=== PATIENT | female | born 1945 | race Caucasian/White ===

== ENCOUNTER → 2020-06-27 | Outpatient (CLI) | payer MEDICARE ==
--- NOTE | 2020-07-06 12:28 | RAD ---
DATE: 06/27/2020 11:25 AM EXAM: MG BILAT SCREEN+MIO HISTORY: routine screening evaluation. COMPARISON: 02/17/2019 Bilateral CC and MLO views of the breasts were performed. Bilateral breast tomosynthesis was performe d in CC and MLO projections. This study was interpreted with the benefit of Computerized Aided Detection (CAD). FINDINGS: Breast Density: HETERO The breast parenchyma Is heterogeneously dense, which could reduce sensitivit y of mammography. Breast parenchyma level C Benign calcifications are present. The parenchymal pattern appears stable. No suspicious masses, microcalcifications or architectural distortion is present to suggest malignanc y in either breast. The visualized axillae are unremarkable. IMPRESSION: No mammographic evidence of malignancy. BI-RADS CATEGORY: 2 BENIGN FINDING(S) RECOMMENDED FOLLOW-UP: 12M 12 MONTH FOLLOW-UP Annual screening mammography is recommended, unless cli nically indicated sooner based on symptoms or change in physical exam. PQRS compliance statement: Patient information was entered into a reminder system with a target due d ate for the next mammogram. Mammography is a sensitive method for finding small breast cancers, but it does not detect them all a nd is not a substitute for careful clinical examination. A negative mammogram does not negate a clin ically suspicious finding and should not result in delay in biopsying a clinically suspicious abnorma lity. "Our facility is accredited by the [employer] Mammography Program." Electronically signed by: Getachew Melton MD (07/06/2020 12:25 PM) [id number]
== END ==
LOC: MAMMO 11:17
PROVIDERS: ATTEND Nurse Practitioner Adult Health
DX: Z12.31 Encounter for screening mammogram for malignant neoplasm of breast (principal)
CPT/HCPCS: 77063; 77067

== ENCOUNTER → 2021-05-30 | Outpatient (CLI) | payer MEDICARE ==
--- NOTE | 2021-05-30 13:52 | RAD ---
Exam: XR FOOT_RIGHT 3 VIEWS History: Right foot pain. Injury yesterday. Comparison: None. Findings: Osseous mineralization is normal. No acute fracture or dislocaton. Degenerative changes of the tarsom etatarsal joints, first metatarsophalangeal joint and interphalangeal joints. Plantar calcaneal spur. No focal soft tissue swelling. Impression: 1. Degenerative changes without acute osseous abnormality of the right foot. Electronically signed by: Ayan Mg MD (05/30/2021 1:49 PM) [id number]
== END ==
LOC: PMG 12:48
PROVIDERS: ATTEND Nurse Practitioner Family
DX: M19.071 Primary osteoarthritis, right ankle and foot (principal); M77.31 Calcaneal spur, right foot
CPT/HCPCS: 73630